=== PATIENT | male | born 1935 | race Caucasian/White ===

== ENCOUNTER 2020-11-04 19:17 | Emergency (ER) | payer MEDICARE, OTHER ==
[~2020-11-04] VITALS: Ht 172.7 cm; Wt 86.0 kg
[2020-11-04 18:04] VITALS: BP 134/80
--- NOTE | 2020-11-04 18:13 | NUR ---
PATIENT BIB EMS WITH CHIEF C/O WEAKNESS. PER EMS PATIENT FREQUENTLY CALLS 911 FOR ASSITANCE GETTING UP AND TO THE BATHROOM AND AROUND HIS HOUSE, DAUGHTER HAS PREVIOUSLY REFUSED FOR PATIENT TO BE BROUGHT TO THE HOSPITAL. PATIENT IS A&OX4, EMS ENCOURAGED PATIENT TO COME TO ED FOR EVALUATION OF PROGRESSIVE WEAKNESS. VSS EN ROUTE, NO INTERVENTIONS. UPON ASSESSMENT PATIENT IS A&OX4, BUT IS A POOR HISTORIAN WHEN IT COMES TO HIS HEALTH HISTORY. CONNECTED TO MONITORS, VSS, SIDE RAILS UP X2, CALL LIGHT WITHIN REACH.
--- NOTE | 2020-11-04 18:18 | NUR ---
DAUGHTER AT BEDSIDE AND ABLE TO ANSWER HEALTH HISTORY QUESTIONS.
--- NOTE | 2020-11-04 18:21 | NUR ---
PER DAUGHTER AIR CONDITIONER WAS NOT WORKING EARLIER TODAY AND TEMPERATURE READ IN HOUSE WAS 90 DEGREES UNTIL AIR CONDITIONER WAS FIXED.
--- NOTE | 2020-11-04 18:38 | NUR ---
DAUGHTER APPEARS UPSET AND VERBALIZES THAT PATIENT "NEVER SHOULD HAVE BEEN BROUGHT HERE, I WANT TO KNOW WHO THE SPLITTER MACHINE WAS THAT BROUGHT HIM HERE." EXPLAINED TO PATIENT AND DAUGHTER THAT PER EMS PATIENT IS UNABLE TO SAFELY GET AROUND AT HOME BY HIMSELF. DAUGHTER STATES THAT PATIENT USES [facility] AND "WE ARE PAYING $600 A MONTH FOR [facility] AND HE USES IT TO CALL FOR HELP WHEN HE NEEDS TO GET AROUND." PATIENT STATING HE NEVER AGREED TO COME TO THE ED. SPOKE WITH SUPERIOR COURT CLERK AND EXPLAINED SITUATION. CALLED [facility] AND INFORMED THEM OF THE SITUATION WELL, THEY WILL BE SENDING [facility] TO SPEAK WITH PATIENT AND HIS FAMILY.
--- NOTE | 2020-11-04 18:44 | NUR ---
INFORMED FAMILY THAT [facility] ON THEIR WAY TO SPEAK WITH FAMILY AND PATIENT ABOUT WAHT HAPPENED. PER ERMD PATIENT CAN BE DISCHARGED.
--- NOTE | 2020-11-04 18:59 | NUR ---
DAVID DIRECTOR OF COMPENSATION SPEAKING WITH FAMILY.
--- NOTE | 2020-11-04 18:59 | NUR ---
REPORT GIVEN TO ARANZA MONROE AND ARANZA JIM FOR TRANSFER OF PATIENT CARE.
--- NOTE | 2020-11-04 19:19 | NUR ---
DAVID OVER THE ROAD DRIVER CAME TO ER TO SPEAK TO FAMILY MEMBER. PT LEFT IN NAD. FAMILY MEMBERS WHEELCHAIRED PT OUT. PT FAMILY MEMBER UPSET ABOUT [facility] BRINGING PT TO THE ER. PT AND FAMILY ELOPED BEFORE DC PAPERWORK COULD BE PROPERLY GIVEN TO PT.
== END 2020-11-04 19:23 ==
LOC: ED 19:17
DX: R53.1 Weakness (principal)
CPT/HCPCS: 99283